=== PATIENT | female | born 1970 | race Caucasian/White ===

== ENCOUNTER → 2016-12-05 | Outpatient (CLI) | payer BC ==
--- NOTE | 2016-12-06 07:40 | MAMMOGRAPHY REPORT ---
BILATERAL DIGITAL SCREENING MAMMOGRAM TOMOSYNTHESIS WITH CAD: 12/05/2016 CLINICAL HISTORY: Routine screening. Patient has no complaints. TECHNIQUE: Breast tomosynthesis in addition to standard 2D mammography was performed. Current study was also evaluated with a Computer Aided Detection (CAD) system. COMPARISON: Comparison is made to exams dated: 12/03/2015 mammogram, 09/10/2014 mammogram, 01/01/2014 m ammogram, 04/01/2013 ultrasound, and 04/01/2013 mammogram - [facility]. BREAST COMPOSITION: There are scattered areas of fibroglandular density in both breasts. FINDINGS: There are a few benign coarse calcifications bilaterally. No suspicious mass, architectur al distortion or cluster of suspicious microcalcifications is seen. IMPRESSION: ACR BI-RADS CATEGORY 1: NEGATIVE There is no mammographic evidence of malignancy. A 1 year screening mammogram is recommended. The pa tient will receive written notification of the results. Approximately 10% of breast cancers are not detected with mammography. A negative mammographic report should not delay biopsy if a clinically suggestive mass is present. Stephanie Martinez M.D. ay/:12/05/2016 14:39:47 Biochemist: Hilda GARCIA(R)(M), [facility] letter sent: Normal 1/2 BI-RADS Code: ACR BI-RADS Category 1: Negative
== END | disposition home or self-care (01) ==
LOC: C.MAMM 10:51
PROVIDERS: ATTEND Family Medicine
DX: Z12.31 Encounter for screening mammogram for malignant neoplasm of breast (principal)

== ENCOUNTER → 2017-03-10 | Outpatient (CLI) | payer OTHER ==
[~2017-03-10] MED LIST: FLUT50SP45 NAE; IBUP-103 PO; MULT1PAK42 PO
[2017-03-10 16:27] LABS: BLOOD UREA NITROGEN 13 mg/dl (7-18); CALCIUM 9.3 mg/dl (8.5-10.1); CARBON DIOXIDE 27 mmol/L (21-32); CREATININE 0.61 mg/dl (0.60-1.20); GLUCOSE 95 mg/dl (70-99); SODIUM 138 mmol/L (136-145)
== END | disposition home or self-care (01) ==
LOC: C.LAB 15:33
PROVIDERS: ATTEND Physician Assistant
DX: Z01.812 Encounter for preprocedural laboratory examination (principal)

== ENCOUNTER → 2017-03-17 | Day surgery (SDC) | payer BC, OTHER ==
[2017-03-08 14:15] VITALS: BMI 49.0
--- NOTE | 2017-03-08 14:51 | PAT Medication Instructions ---
Service Date Mar 08, 2017. Current Home Medication List Fluticasone Propionate (Nasal) (Allergy Nasal [place] [address] Ho), 2 SPRAYS YOANDY UD PRN for SINUS CONGESTION Ibuprofen Tab (Advil), 200 MG PO UD Multiple Vitamins W/ Minerals (Emergen-C Immune), 1 PKT PO UD Medication Instructions For Your Scheduled Surgery - Contact your surgeon if you plan on taking: Ibuprofen Tab (Advil), 200 MG PO UD - Hold the following medications the morning of surgery: Multiple Vitamins W/ Minerals (Emergen-C Immune), 1 PKT PO UD - Take the following medications the morning of surgery with a sip of water: Fluticasone Propionate (Nasal) (Allergy Nasal [place] [address] Ho), 2 SPRAYS YOANDY UD PRN for SINUS CONGESTION (if needed) If you have any questions please call us at [phone] or [phone] or [phone]
[2017-03-08 15:25] LABS: BASO % 0.4 %; BASO ABS # 0.04 K/uL (0-0.2); EOS ABS # 0.19 K/uL (0-0.5); HEMATOCRIT 40.2 % (37-47); HEMOGLOBIN 13.6 g/dL (12.0-16.0); IG# 0.01 K/uL (0.00-0.02); LYMPH % 30.3 %; LYMPH ABS # 2.89 K/uL (1.2-3.4); MEAN CELL VOLUME 88.4 fL (80-100); MEAN CORPUSCULAR HEMOGLOBIN 29.9 pg (25-34); MEAN CORPUSCULAR HGB CONC 33.8 g/dl (32-36); MEAN PLATELET VOLUME 10.5 fL (7.4-10.4); MONO % 6.9 %; MONO ABS # 0.66 K/uL (0.11-0.59); NEUT % 60.3 %; NEUT ABS # 5.75 K/uL (1.4-6.5); PLATELET COUNT 297 K/uL (130-400); RED CELL DISTRIBUTION WIDTH CV 13.1 % (11.5-14.5); RED CELL DISTRIBUTION WIDTH SD 42.5 fL (36.4-46.3); WHITE BLOOD COUNT 9.54 K/uL (4.8-10.8)
[~2017-03-17] VITALS: Ht 162.6 cm; Wt 130.0 kg
[~2017-03-17] MED LIST changes: +ATROPINE SULFATE 0.1 MG/ML 5ML SYR IV PRN; +DEXAMETHASONE SOD INJ 4 MG/ML VIAL ONE; +EpHEDrine SULFATE INJ 50 MG/ML AMP IV PRN; +FENTANYL CITRATE INJ 50 MCG/1 ML 2 ML VIAL IV PRN; +FENTANYL CITRATE INJ 50 MCG/1 ML 2 ML VIAL ONE; +IBUPROFEN 600 MG TAB PO PRN; +KETOROLAC TROMETHAMINE 30 MG/ML VIAL IV. PRN; +KETOROLAC TROMETHAMINE 30 MG/ML VIAL ONE; +LACTATED RINGER'S 1000ML 1,000 ML IV SCH; +LIDOCAINE HCL 2% 2 ML VIAL (20MG/ML) ONE; +MIDAZOLAM HCL 1 MG/ML 2ML VIAL ONE; +MTR600X PO; +ONDANSETRON INJ 2 MG/ML 2 ML VIAL IV PRN; +ONDANSETRON INJ 2 MG/ML 2 ML VIAL ONE; +OXYCODONE/ACETAMINOPHEN 5-325 TAB PO PRN; +PROMETHAZINE HCL INJ 25 MG in SODIUM CHLORIDE 0.9% 50ML 50 ML IV PRN; +PROPOFOL IV EMULSION 10 MG/ML 20 ML VIAL IV ONE; +SODIUM CHLORIDE 0.9% 1000ML 1,000 ML IV SCH
[2017-03-17 08:05] VITALS: BP_DIAS 89; PULSE 94; TEMP 37; O2SAT 97; Ht 162.6 cm; Wt 130.0 kg
--- NOTE | 2017-03-17 08:41 | History & Physical Bridge Note ---
H&P Re-Evaluation Bridge Note: I have examined the patient, reviewed the History & Physical and in the interval since the performance of the History & Physical I have noted the following changes of clinical significance: No changes noted
--- NOTE | 2017-03-17 09:30 | Discharge Instructions ---
Discharge Instructions Date of Service Mar 17, 2017. Admission Reason for Admission: Complex Hyperplasia With Atypia Discharge Discharge Diagnosis / Problem: Postop Discharge Goals Goal(s): Routine recovery after surgery Activity Recommendations Activity Limitations: as noted below ACTIVITY RECOMMENDATIONS: * Avoid tampons, douching, hot tubs, pools, and intercourse until bleeding has stopped. * May shower as usual. * No strenuous activity for 24-48 hours. After 24-48 hours, you can do anything you feel like doing (driving and sports are okay). RETURN TO SCHOOL/WORK: * You may return to school or work after 24 hours unless specified by your physician. DIET: * Resume previous diet. MEDICATIONS: Resume previous medications unless instructed otherwise by your surgeon. Ibuprofen 200mg 2-3 tablets every 4-6 hours as needed --OR-- Aleve 2 tablets every 8-12 hours as needed for post-operative discomfort Medications are over the counter. Tylenol may be used if above medications are contraindicated or not preferred. Medication should be taken with food or milk. do not take on an empty stomach. SPECIAL CARE INSTRUCTIONS: * Check temperature twice daily for one week. Report any elevation over 101 degrees. * Call office if you experience increased pelvic pain or discomfort not relieved by pain medicine, if you have foul smelling vaginal discharge, if you have bleeding that is heavier than a normal menstrual flow. If you are changing a maxi pad every 1- 2 hours, this is too heavy. vaginal spotting is normal for 1-2 weeks. FOLLOW UP VISIT: Call your doctor's office for a post-operative visit. . Current Hospital Diet Patient's current hospital diet: Discharge Diet Recommended Diet: Regular Diet Procedures Procedures Performed: Dilatation and Currettage and Hysteroscopy Pending Studies Studies pending at discharge: no Medical Emergencies . Who to Call and When: Medical Emergencies: If at any time you feel your situation is an emergency, please call 911 immediately. . Non-Emergent Contact Non-Emergency issues call your: Specialist . . "Provider Documentation" section prepared by Keyonna Cardozo. . VTE Core Measure Inpt VTE Proph given/why not?: Treatment not indicated
--- NOTE | 2017-03-17 09:31 | [facility] Post Operative Brief Note ---
Immediate Operative Summary Operative Date Mar 17, 2017. Pre-Operative Diagnosis Atypical Hyperplasia Post-Operative Diagnosis Atypical Hyperplasia Procedure(s) Performed Dilatation and Currettage and Hysteroscopy Surgeon Dr. Keyonna Cordero Pattern Marker Surgeon(s) None Estimated Blood Loss 5ml Findings Consistent with Post-Op Diagnosis Specimens A. Endometrial Currettings Drains None Anesthesia Type General Complication(s) none Disposition Disposition: Recovery Room / PACU
--- NOTE | 2017-03-17 10:09 | [facility] Operative Report ---
Operative Report Operative Date Mar 17, 2017. Pre-Operative Diagnosis Atypical Hyperplasia Post-Operative Diagnosis Atypical Hyperplasia Procedure(s) Performed Dilatation and Currettage and Hysteroscopy Surgeon Dr. Keyonna Cordero Optical Glass Wet Inspector Surgeon(s) None Estimated Blood Loss 5ml Findings Normal size anteverted uterus Thickened endometrium with no polyps or fibroids Bilateral tubal ostia visualized Fluids 500 Specimens A. Endometrial Currettings Drains None Complication(s) None Disposition Recovery Room / PACU Indications 46 year female with complex hyperplasia with atypia. Description of Procedure After obtaining informed consent, the patient was taken to the operating room where she was properly prepped and draped in the usual sterile manner under anesthesia. After bimanual examination, the cervix was exposed with a weighted vaginal speculum and the anterior lip of the cervix was gently grasped with a single tooth tenaculum. The uterus was sounded to a depth of 8 cm. The endocervical canal was then progressively dilated with Wesly dilators.The hysteroscope was then introduced into the uterine cavity using sterile saline solution as a distending media and with attached video camera. The endometrial cavity was distended with fluids and the cavity visualized. The coronal areas were visualized bilaterally with corresponding tubal ostia. A thickened amount of proliferative appearing endometrium was noted. There was no direct intraluminal lesions seen. Several pictures were taken of the endometrial cavity and the hysteroscope removed for the cavity. A medium sharp curet was then used to obtain a moderate amount of tissue, which was sent to the pathologist for analysis. The instrumentation was removed from the vaginal vault. The patient tolerated the procedure well and was sent to recovery in stable condition. I attest to the content of the Intraoperative Record and any orders documented therein. Any exceptions are noted below.
--- NOTE | 2017-03-17 10:11 | Anesthesiology Progress Note ---
Anesthesia Post Op Note Date & Time Mar 17, 2017 at 10:11 Vital Signs Pain Intensity: 0 Vital Signs Past 12 Hours Date Time Temp Pulse Resp B/P (MAP) Pulse Ox O2 Delivery O2 Flow Rate FiO2 03/17/17 10:05 36.2 81 16 118/75 97 Room Air 03/17/17 09:55 75 16 121/75 96 Oxymask 10 03/17/17 09:46 90 16 89/49 96 Oxymask 10 03/17/17 09:39 36.4 87 16 144/95 97 Oxymask 10 03/17/17 08:05 37 94 16 /89 (60) 97 Room Air Notes Mental Status: alert / awake / arousable, participated in evaluation Pt Amnestic to Procedure: Yes Nausea / Vomiting: adequately controlled Pain: adequately controlled Airway Patency, RR, SpO2: stable & adequate BP & HR: stable & adequate Hydration State: stable & adequate Anesthetic Complications: no major complications apparent
[2017-03-17 10:20] VITALS: BP 140/82; PULSE 85; TEMP 36.5; O2SAT 97
[2017-03-17 10:50] VITALS: BP 143/78; PULSE 87; TEMP 36.4; O2SAT 99
== END | disposition home or self-care (01) ==
LOC: C.ACU 07:47
PROVIDERS: ATTEND Obstetrics & Gynecology Obstetrics
DX: N85.02 Endometrial intraepithelial neoplasia [EIN] (principal); E66.9 Obesity, unspecified; Z82.49 Family history of ischemic heart disease and other diseases of the circulatory system

== ENCOUNTER 2017-06-16 07:53 | Day surgery (SDC) | payer OTHER ==
[2017-06-07 15:10] VITALS: BMI 49.0
--- NOTE | 2017-06-07 15:34 | PAT Medication Instructions ---
Service Date Jun 07, 2017. Current Home Medication List Ibuprofen (Motrin), 600 MG PO UD PRN for Pain Medication Instructions For Your Scheduled Surgery - Check with your surgeon for instructions for: Ibuprofen (Motrin), 600 MG PO UD PRN for Pain If you have any questions please call us at [phone] or [phone] or [phone]
[2017-06-07 16:24] LABS: BASO % 0.3 %; BASO ABS # 0.03 K/uL (0-0.2); EOS % 1.2 %; EOS ABS # 0.11 K/uL (0-0.5); HEMATOCRIT 41.4 % (37-47); HEMOGLOBIN 14.2 g/dL (12.0-16.0); IG# 0.01 K/uL (0.00-0.02); LYMPH % 42.4 %; LYMPH ABS # 3.92 K/uL (1.2-3.4); MEAN CELL VOLUME 86.8 fL (80-100); MEAN CORPUSCULAR HEMOGLOBIN 29.8 pg (25-34); MEAN CORPUSCULAR HGB CONC 34.3 g/dl (32-36); MEAN PLATELET VOLUME 9.8 fL (7.4-10.4); MONO % 5.7 %; MONO ABS # 0.53 K/uL (0.11-0.59); NEUT % 50.3 %; NEUT ABS # 4.65 K/uL (1.4-6.5); PLATELET COUNT 339 K/uL (130-400); RED CELL DISTRIBUTION WIDTH CV 13.4 % (11.5-14.5); RED CELL DISTRIBUTION WIDTH SD 42.6 fL (36.4-46.3); WHITE BLOOD COUNT 9.25 K/uL (4.8-10.8)
[2017-06-07 16:33] LABS: CALCIUM 9.3 mg/dl (8.5-10.1); CREATININE 0.68 mg/dl (0.60-1.20); POTASSIUM 3.9 mmol/L (3.5-5.1)
[2017-06-16] VITALS (8 sets, daily range): BP systolic 137–182; BP diastolic 78–94; PULSE 83–100; TEMP 36.4–36.7; O2SAT 93–97; Ht 162.6 cm; Wt 130.8 kg
[~2017-06-16] VITALS: Ht 162.6 cm; Wt 130.8 kg
[~2017-06-16 07:53] MED LIST changes: +CEFAZOLIN 3000MG IV PUSH 22.5 ML IV SCH; -DEXAMETHASONE SOD INJ 4 MG/ML VIAL ONE; -FENTANYL CITRATE INJ 50 MCG/1 ML 2 ML VIAL IV PRN; -FENTANYL CITRATE INJ 50 MCG/1 ML 2 ML VIAL ONE; -FLUT50SP45 NAE; +HYDROmorphone INJ 0.5 MG/0.5 ML SYR IV PRN; -IBUP-103 PO; +IBUP600T44 PO; -IBUPROFEN 600 MG TAB PO PRN; -KETOROLAC TROMETHAMINE 30 MG/ML VIAL IV. PRN; -KETOROLAC TROMETHAMINE 30 MG/ML VIAL ONE; -LIDOCAINE HCL 2% 2 ML VIAL (20MG/ML) ONE; -MIDAZOLAM HCL 1 MG/ML 2ML VIAL ONE; -MTR600X PO; -MULT1PAK42 PO; -ONDANSETRON INJ 2 MG/ML 2 ML VIAL ONE; -OXYCODONE/ACETAMINOPHEN 5-325 TAB PO PRN; -PROMETHAZINE HCL INJ 25 MG in SODIUM CHLORIDE 0.9% 50ML 50 ML IV PRN; -PROPOFOL IV EMULSION 10 MG/ML 20 ML VIAL IV ONE; -SODIUM CHLORIDE 0.9% 1000ML 1,000 ML IV SCH
[2017-06-16] MEDS ORDERED: FENTANYL CITRATE INJ 50 MCG/1 ML 2 ML VIAL ONE ×3 (10:01→12:40)
[2017-06-16] MEDS ORDERED: MIDAZOLAM HCL 1 MG/ML 2ML VIAL ONE (10:01)
[2017-06-16] MEDS ORDERED: HYDROmorphone INJ 2 MG/ML SYR/VIAL ONE (10:01)
[2017-06-16] MEDS ORDERED: METHYLENE BLUE 0.5% 10 ML VIAL ONE ×2 (10:19→11:51)
[2017-06-16] MEDS ORDERED: BUPIVACAINE 0.5 % 5 MG/1 ML MPF 30ML VIAL ONE (10:19)
[2017-06-16] MEDS ORDERED: KETAMINE HCL INJ 50 MG/ML 10 ML VIAL ONE (10:54)
[2017-06-16] MEDS ORDERED: PROPOFOL IV EMULSION 10 MG/ML 20 ML VIAL IV ONE (10:55)
[2017-06-16] MEDS ORDERED: ONDANSETRON INJ 2 MG/ML 2 ML VIAL ONE (10:55)
[2017-06-16] MEDS ORDERED: DEXAMETHASONE SOD INJ 4 MG/ML VIAL ONE (10:55)
[2017-06-16] MEDS ORDERED: LIDOCAINE HCL 2% 2 ML VIAL (20MG/ML) ONE (10:55)
[2017-06-16] MEDS ORDERED: NEOSTIGMINE METHYLSULFATE 5 MG/5 ML SYR ONE (12:08)
[2017-06-16] MEDS ORDERED: GLYCOPYRROLATE INJ 0.2 MG/ML VIAL ONE (12:08)
--- NOTE | 2017-06-16 12:23 | [facility] Post Operative Brief Note ---
Immediate Operative Summary Operative Date Jun 16, 2017. Pre-Operative Diagnosis Endometrial Hyperplasia Post-Operative Diagnosis Same as pre-op Procedure(s) Performed Total Laparoscopic Hysterectomy, Bilateral Salpingectomy and Cystoscopy Surgeon Dr. Cordero Project Management Intern Surgeon(s) Dr. Starr Estimated Blood Loss 30 Findings Consistent with Post-Op Diagnosis Fluids (cc crystalloids) 1600 Specimens Uterus, cervix, bilateral fallopian tubes Drains None Anesthesia Type General Complication(s) none Disposition Disposition: Recovery Room / PACU
[2017-06-16] MEDS: FENTANYL CITRATE INJ 50 MCG/1 ML 2 ML VIAL IV PRN ×4 (12:41→12:56)
--- NOTE | 2017-06-16 12:44 | Discharge Instructions ---
Discharge Instructions Date of Service Jun 16, 2017. Admission Reason for Admission: Endometrial Hyperplasia, Pre Op Discharge Discharge Diagnosis / Problem: Postop Discharge Goals Goal(s): Routine recovery after surgery Activity Recommendations Activity Limitations: as noted below POST OPERATIVE: BOWEL FUNCTION/MEDICATIONS: 1. Constipation pain and discomfort are the most common complaints 5-7 days after surgery. Points 2-6 address the things that can help. 2. Chewing gum can help stimulate the gut and help improve digestion and motility. 3. Milk of Magnesia 1-2 times per day until return of bowel function. 4. Colace is a stool softener that helps. Taking this 2-3 times per day until bowel function returns to normal is highly recommended. 5. Dulcolax is a laxative that may be used if several days have passed without a bowel movement. Alternatively Miralax may be used daily instead. 6. Drink plenty of fluids as this will also reduce constipation. 7. Narcotic pain medications will be prescribed by your physician. They are safe to use and we encourage you to use them. If you are not allergic, ibuprofen will also be prescribed. Many patients will be able to transition off of the narcotic medications to ibuprofen by postoperative day 3. ACTIVITY RECOMMENDATIONS: 1. Get plenty of rest and listen to your body. If you are tired, take a nap. 2. You may shower, but do not take a tub bath until you see your doctor at the 2 week post operative visit. 3. Absolutely NO intercourse and nothing in the vagina until you are examined by your doctor at the 6 week visit. At that visit it will be determined when such activities can be resumed. This can range from 6-12 weeks after your surgery depending on healing time. 4. The main physical activity in the first week should be walking. By the second week you can slowly increase activity. There are no limits on walking up and down stairs. 5. Do not lift more than 5-10 lbs for 4 weeks. Remember the "one-handed rule", i.e. if you can lift something with only one hand it's likely okay. 6. 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 "Overdoing it" can lead to incisions not healing, pain and vaginal bleeding , so again, listen to your body. 7. Driving can be resumed when you feel able. Do not drive within 24 hours of taking a narcotic medication. EXPECTATIONS: 1. Vaginal spotting, bleeding and discharge are common after surgery. There may even be an odor to the discharge which is often related to sutures used in the vagina. If you experience heavy vaginal bleeding, call the office number day or night [phone] 2. Bladder discomfort is common after surgery from the catheter. This usually resolves in 1-2 weeks. 3. By the end of the 3rd or 4th week you should be feeling much better. It may take up to 6 weeks for your energy levels to return to normal. 4. Narcotic medications have side effects such as: dizziness, headache, nausea and/or vomiting. If you suspect your pain medication is causing problems, call our office and we may be able to prescribe an alternate medication. 5. The skin incisions are often covered with a liquid bandage. This will gradually peel off over time. CALL THE OFFICE IF YOU HAVE ANY OF THE FOLLOWIN. Temperature of 101 degrees or higher. 2. Severe abdominal or pelvic pain not relieved by pain medication. 3. Persistent nausea or vomiting. 4. Increased pain with urination or difficulty urinating. 5. Bright red bleeding that soaks more than 1 pad per hour. CONTACT PHONE NUMBERS: Main Office: [phone] FOLLOW-UP: Post-Operative Appointments: * Individual instructions will have been given about the timing of your first examination, but this is usually at the end of the second week home. * You will need to call the office at soon after discharge to make the appointment for your post-op check-up if it has not already been scheduled. * Additional information regarding activity, sexual intercourse and when to return to work will be given at this appointment. WE WISH YOU A SPEEDY RECOVERY! . Current Hospital Diet Patient's current hospital diet: Discharge Diet Recommended Diet: Regular Diet Procedures Procedures Performed: Total Laparoscopic Hysterectomy, Bilateral Salpingectomy and Cystoscopy Pending Studies Studies pending at discharge: no Medical Emergencies . Who to Call and When: Medical Emergencies: If at any time you feel your situation is an emergency, please call 911 immediately. . Non-Emergent Contact Non-Emergency issues call your: Specialist . . "Provider Documentation" section prepared by Keyonna Cardozo. .
[2017-06-16] MEDS ORDERED: PROMETHAZINE HCL INJ 25 MG in SODIUM CHLORIDE 0.9% 50ML 50 ML IV PRN (12:45)
[2017-06-16] MEDS ORDERED: KETOROLAC TROMETHAMINE 30 MG/ML VIAL IV. PRN (12:45)
[2017-06-16] MEDS ORDERED: ONDANSETRON INJ 2 MG/ML 2 ML VIAL IV PRN (12:45)
[2017-06-16] MEDS ORDERED: IBUPROFEN 600 MG TAB PO PRN (12:45)
[2017-06-16] MEDS ORDERED: OXYCODONE/ACETAMINOPHEN 5-325 TAB PO PRN ×2 (12:45)
--- NOTE | 2017-06-16 13:01 | [facility] Operative Report ---
Operative Report Operative Date Jun 16, 2017. Pre-Operative Diagnosis Endometrial Hyperplasia Post-Operative Diagnosis Same as pre-op Procedure(s) Performed Total Laparoscopic Hysterectomy, Bilateral Salpingectomy and Cystoscopy Surgeon Dr. Cordero Clinical Trial Assistant Surgeon(s) Dr. Starr Estimated Blood Loss 30 cc Findings 8 cm anteverted uterus, midposition nulliparous cervix, normal appearing fallopian tubes and ovaries bilaterally, anterior and posterior cul de sacs were free of disease, normal appearing liver edge, appendix not visualized Fluids 1600 Specimens A: Uterus, cervix, bilateral fallopian tubes Drains None Anesthesia Type General Complication(s) none Disposition Recovery Room / PACU Indications 47 yo G0 with endometrial hyperplasia desiring definitive surgical management via hysterectomy. Informed consent previously signed. Description of Procedure Under general anesthesia in the dorsal lithotomy position, the patient was prepped and drapped in the usual sterile fashion. Beginning at the vagina, a watson catheter was inserted under sterile conditions and left in situ for the remainder of the case. A weighted speculum was then placed in the vagina and with the help of a right angle retractor the cervix was visualized and grasped anteriorly with a single tooth tenaculum. A [employer] uterine manipulator was inserted without difficulty. The weighted speculum was then removed. Attention was then turned to the abdomen. 25% marcaine solution was used for infiltration of all port sites. Beginning in the subumbilical area, the skin was first infiltrated with ~ 3 cc of the marcaine solution, then a 5 mm incision was made through the skin with a #11 blade. Direct entry with the 5 mm trocar/sleeve and laparoscoe was performed into the peritoneal cavity. The opening pressure was < 8 mmHg. The peritoneal cavity was insufflated with CO2 gas to a maximum pressure of 20 mmHg. Examination of the peritoneal cavity revealed no signs of injury from entry and normal anatomical structures as noted in the findings. The patient was then placed in steep Trendelenburg and three more 5 mm trocars were placed, one on the right and two on the left, in the standard technique, taking care to avoid the epigastric vessels. All trocars were placed under direct visualization with no inadvertent damage to underlying structures. The uterus was upheld from below and revealed a normal uterus and normal tubes and ovaries. Beginning on the right side and working distally along the length of the fallopean tube, the mesosalpinx was exposed by lifting the fimbrae up towards the anterior abdominal wall. The mesosalpinx was then sequentially, clamped, ligated, and cut using the OZZIE Harmonic working alongside the length of the tube and towards the cornua. Attention was then turned to the other side. The same process was repeated on the left, sequentially clamping, ligating, and cutting the mesosalpinx being sure to not injure the adjacent ovarian tissue or other surrounding structures. The round ligament was then ligated and cut. Following this, the anterior leaf of the broad ligament was then taken down on the right side, dissecting down towards the peritoneal reflection at the base of the bladder and adjacent to the cervix. The same process was then repeated on the left side such that both sides met and the anterior leaflet had been appropriately skeletonized. Once the bladder was appropriately dissected free from the lower anterior uterine segment and the tissues skeletonized, the uterine arteries were bilaterally clamped and ligated. Pedicles were checked and hemostatic. At the level of the plastic cup of the uterine manipulator, the vaginal vault was incised circumferentially with the OZZIE Harmonic. The uterus, cervix and bilateral fallopian tubes were delivered through the vagina and sent to pathology. A sterile glove was then placed into the vagina to form a pneumatic seal and all the pedicles as well as the cuff edges were examined. The vaginal vault was then closed with V-loc suture being sure to avoid the bladder lateral pedicles. Following vault closure, an inspection of all areas was made to ensure hemostasis. Floseal was placed on pamela vaginal cuff. All ports were removed under direct visualization and hemostasis noted. All the incision sites were then closed with 4-0 monocryl sutures in a subcuticular fashion and dermabond. The watson catheter was removed. Cystoscopy was then performed with a 30 degree scope. The bladder was free of lesions or suture. Bilateral efflux of brisk urine was visualized at the ureteral orifices. The bladder was drained and the cystoscope was removed. At the end of the procedure, all sponges, instruments, and sharps were counted and correct. Estimated blood loss was 30 ml. The patient was taken to recovery in stable condition. I attest to the content of the Intraoperative Record and any orders documented therein. Any exceptions are noted below.
--- NOTE | 2017-06-16 13:03 | Anesthesiology Progress Note ---
Anesthesia Post Op Note Date & Time Jun 16, 2017 at 13:03 Vital Signs Pain Intensity: 4.0 Vital Signs Past 12 Hours Date Time Temp Pulse Resp B/P (MAP) Pulse Ox O2 Delivery O2 Flow Rate FiO2 06/16/17 12:55 63 16 132/84 96 Oxymask 10 06/16/17 12:45 84 16 129/80 96 Oxymask 10 06/16/17 12:35 36.0 66 16 125/84 96 Oxymask 10 06/16/17 08:17 36.7 100 20 182/93 (122) 97 Room Air Notes Mental Status: alert / awake / arousable, participated in evaluation Pt Amnestic to Procedure: Yes Nausea / Vomiting: adequately controlled Pain: adequately controlled Airway Patency, RR, SpO2: stable & adequate BP & HR: stable & adequate Hydration State: stable & adequate Anesthetic Complications: no major complications apparent
[2017-06-16] MEDS ORDERED: OXYCODONE/ACETAMINOPHEN 5-325 TAB ONE (14:02)
[2017-06-16] MEDS ORDERED: SODIUM CHLORIDE 0.9% 1000ML 1,000 ML IV SCH (14:35)
== END 2017-06-16 17:45 | disposition home or self-care (01) ==
LOC: C.ACU 07:53
PROVIDERS: ATTEND Obstetrics & Gynecology Obstetrics
DX: N85.00 Endometrial hyperplasia, unspecified (principal); E66.01 Morbid (severe) obesity due to excess calories; Z80.7 Family history of other malignant neoplasms of lymphoid, hematopoietic and related tissues; Z82.49 Family history of ischemic heart disease and other diseases of the circulatory system; Z82.0 Family history of epilepsy and other diseases of the nervous system; Z79.899 Other long term (current) drug therapy; Z68.42 Body mass index [BMI] 45.0-49.9, adult

== ENCOUNTER → 2017-09-25 | Outpatient (CLI) | payer OTHER ==
[~2017-09-25] MED LIST changes: -ATROPINE SULFATE 0.1 MG/ML 5ML SYR IV PRN; -CEFAZOLIN 3000MG IV PUSH 22.5 ML IV SCH; -EpHEDrine SULFATE INJ 50 MG/ML AMP IV PRN; -HYDROmorphone INJ 0.5 MG/0.5 ML SYR IV PRN; -LACTATED RINGER'S 1000ML 1,000 ML IV SCH; -ONDANSETRON INJ 2 MG/ML 2 ML VIAL IV PRN
== END | disposition home or self-care (01) ==
LOC: C.RDSM 14:21
PROVIDERS: ATTEND Family Medicine Sports Medicine
DX: M25.562 Pain in left knee (principal)